=== PATIENT | female | born 1980 | race Caucasian/White ===

== ENCOUNTER 2024-09-20 09:16 | Day surgery (SDC) | payer BC ==
[2024-09-18 11:01] VITALS: BMI 37.3
[2024-09-20] MEDS ORDERED: AFRIN NASAL MIST 15 ML BOT ONE (10:16)
[2024-09-20] MEDS ORDERED: PROPOFOL 20 ML ONE (10:38)
[2024-09-20] MEDS ORDERED: Rocuronium Bromide 10 MG/ML (10ML VIAL) ONE (10:39)
[2024-09-20] MEDS ORDERED: Lidocaine 1% PF 5 ML VIAL ONE (10:39)
[2024-09-20 11:23] LABS: Hematocrit 46.0 % (34.9-44.5)
[2024-09-20] MEDS ORDERED: Lidocaine 1% w/Epinephrine 1:200K 30 ML VIAL ONE (11:23)
[2024-09-20 11:40] LABS: BHCG - Serum Negative (NEGATIVE); Pregs Control Bar Appear? YES (CONTROL BAR)
[2024-09-20 11:41] LABS: Pregs Control Background? CLEAR/WHITE (CLR/WHITE)
[2024-09-20] MEDS ORDERED: Bacitracin 1 PK ONE (12:13)
[2024-09-20] MEDS ORDERED: Oxymetazoline HCl 0.05% (15 ML) ONE (12:19)
[2024-09-20] MEDS ORDERED: PHENYLEPHRINE-NS 100 MCG/ML 10 ML SYRINGE ONE (12:20)
[2024-09-20] MEDS ORDERED: Ondansetron PF 4 MG/2 ML Vial ONE (12:27)
[2024-09-20] MEDS ORDERED: SUGAMMADEX SODIUM 200 MG/2 ML VIAL ONE (12:27)
[2024-09-20] MEDS ORDERED: HYDROcodone/Acetaminophen 5/325 mg Tablet ONE (13:54)
== END 2024-09-20 14:38 | disposition home or self-care (01) ==
LOC: CSHSDC 09:16
PROVIDERS: ATTEND Specialist
PROC: 09BM4ZZ Excision of Nasal Septum, Percutaneous Endoscopic Approach (ICD-10-PCS; principal; 2024-09-20)
PROC: 09BU4ZZ Excision of Right Ethmoid Sinus, Percutaneous Endoscopic Approach (ICD-10-PCS; principal; 2024-09-20)
PROC: 8E09XBZ Computer Assisted Procedure of Head and Neck Region (ICD-10-PCS; principal; 2024-09-20)
PROC: 09BV4ZZ Excision of Left Ethmoid Sinus, Percutaneous Endoscopic Approach (ICD-10-PCS; principal; 2024-09-20)
DX: J34.2 Deviated nasal septum (principal); J34.3 Hypertrophy of nasal turbinates; J32.0 Chronic maxillary sinusitis; J32.1 Chronic frontal sinusitis; J32.2 Chronic ethmoidal sinusitis; E78.5 Hyperlipidemia, unspecified; J45.909 Unspecified asthma, uncomplicated; E03.9 Hypothyroidism, unspecified; Z79.51 Long term (current) use of inhaled steroids; Z79.899 Other long term (current) drug therapy; Z88.0 Allergy status to penicillin; Z91.048 Other nonmedicinal substance allergy status; Z91.030 Bee allergy status
CPT/HCPCS: 36415; 84703; 85014; J0169; J1010; J1100; J2405; J2704; J3010